=== PATIENT | male | born 1965 | race Caucasian/White ===

== ENCOUNTER 2021-02-15 07:30 | Day surgery (SDC) | payer BC ==
[~2021-02-15] VITALS: Ht 180.3 cm; Wt 129.7 kg
[~2021-02-15 07:30] MED LIST: LAMISIL250 MG PO; LISINOPRIL-HCT1 EACH PO; METOPROLOL SUCC25 MG PO; OMEPRAZOLE20 M1 PO; OMEPRAZOLE20 MG PO
--- NOTE | 2021-02-15 09:33 | NUR ---
02/15/21 0933 MELCHOR SMYTH 0924- PATIENT AWAKE. RR EVEN, ON 2L PER NC. DENIES PAIN AND NAUSEA. IV FLUIDS INFUSIONING.
--- NOTE | 2021-02-16 09:13 | OR ---
[facility] [address], [place] [address] Signed DATE OF OPERATION: 02/15/2021 SURGEON: Moses Major MD PREOPERATIVE DIAGNOSES: 1. Father with rectal cancer in his late 60s. 2. Brother with colon polyps at age 42. 3. Ileocecal valve polyp with low-grade dysplasia in 2015. 4. Minimal diverticulosis. 5. Internal and external hemorrhoids. POSTOPERATIVE DIAGNOSES: 1. Moderate external hemorrhoids. 2. Minimal internal hemorrhoids. 3. No visible diverticulosis. 4. 6 mm polyp at 50 cm. 5. 5 mm polyp at 28 cm. 6. 5 mm polyp at 18 cm/rectum. 7. 4 mm polyps x2 at 12 cm. PROCEDURE: Colonoscopy without biopsy. ESTIMATED BLOOD LOSS: None. INDICATIONS: David is a 55-year-old obese gentleman, who was asked to see me for followup colonoscopy. We know his father had rectal cancer in his late 60s. His brother had colonic polyps removed as early as age 42. David himself underwent colonoscopy in 2016 and was found to have a small lesion on the ileocecal valve. It was said to have low-grade dysplasia, but it had been completely cauterized and destroyed. He also had minimal sigmoid diverticulosis along with internal and external hemorrhoids. He returns currently for followup colonoscopy. He has no lower GI complaints. He has always done well with Versed and fentanyl. In the office, I gave him a pamphlet on colonoscopy. He recalls the nature of the test. There is risk including, but not limited to gas bloating, crampy abdominal pain, bleeding, perforation requiring surgery, and missed diagnosis. He also understands the need for the IV conscious sedation. He had expressed understanding and wished to proceed. Electronically Signed By: MOSES MAJOR MD 02/16/21 0913 PATIENT NAME: DAVID CAICEDO OPERATIVE REPORT DATE OF : 65 REPORT #: [id number] PHYSICIAN: MOSES MAJOR MD PCP: JEAN MARIE LIEBERMAN MD REPORT IS CONFIDENTIAL AND NOT TO BE RELEASED WITHOUT AUTHORIZATION [facility] [address] [place] [address], [place] [address] Signed PROCEDURE IN DETAIL: David was taken into our endoscopy suite and placed in the left lateral decubitus position. He was given a total of 8 mg of Versed and 175 mcg of fentanyl to cover the case. Even then, he woke up a couple of times during the procedure although, he was quite comfortable. A digital rectal exam was performed and I could just feel the bottom of the prostate gland. He is a large man one cannot reach his entire prostate gland. No obvious findings. He does have moderate circumferential external hemorrhoids. The right were slightly larger than the left. He had good sphincter tone. The adult colonoscope was introduced in and advanced all around into the cecum under direct visualization camera without difficulty. Again, he did take some extra sedation throughout the test. Overall, his prep was good. He could take a little more prep in the future. We could see the ileocecal valve along with the appendiceal orifice. Pictures were taken throughout for photodocumentation. The scope was then slowly withdrawn. We did not specifically see diverticula on this occasion. However, we did remove the above-mentioned polyps with the help of hot biopsy forceps. Once in the rectum, the scope was retroflexed and he has just minimal internal hemorrhoid tissue. After this, the gas was suctioned out and colonoscope removed. Brian tolerated the procedure quite well. RECOMMENDATIONS: I will see Brian back in my office in 7 to 14 days to review his results. It looks like he will stay on the 5-year rotation. He might consider a little extra prep in the future. Moses Major MD ALB/MODL /[id number] cc: MD Jean Marie Falcon MD Copies: MOSES MAJOR MD Electronically Signed By: MOSES MAJOR MD 02/16/21 0913 PATIENT NAME: DAVID CAICEDO OPERATIVE REPORT DATE OF : 65 REPORT #: [id number] PHYSICIAN: MOSES MAJOR MD PCP: JEAN MARIE LIEBERMAN MD REPORT IS CONFIDENTIAL AND NOT TO BE RELEASED WITHOUT AUTHORIZATION [facility] [address] [facility] [place], [place] [address] Signed JEAN MARIE LIEBERMAN MD ~ Electronically Signed By: MOSES MAJOR MD 02/16/21 0913 PATIENT NAME: SASCHADAVID REILLY OPERATIVE REPORT DATE OF : 65 REPORT #: [id number] PHYSICIAN: MOSES MAJOR MD PCP: JEAN MARIE LIEBERMAN MD REPORT IS CONFIDENTIAL AND NOT TO BE RELEASED WITHOUT AUTHORIZATION
--- NOTE | 2021-02-16 14:09 | PATH ---
[facility] [address] [place], [place] [address] Signed SPECIMEN(S): A COLON POLYP AT 50 CM SPECIMEN(S): B COLON POLYP AT 28 CM SPECIMEN(S): C COLON POLYP AT 18 CM SPECIMEN(S): D COLON POLYP AT 12 CM X2 SPECIMEN SOURCE: A. COLON POLYP AT 50 CM B. COLON POLYP AT 28 CM C. COLON POLYP AT 18 CM D. COLON POLYP AT 12 CM X2 CLINICAL HISTORY: "Divertic", hemorrhoids, polyps. Dx: Colon polyps, external hemorrhoids. MICROSCOPIC DESCRIPTION: Histologic sections of all submitted blocks are examined by light microscopy. These findings, together with the gross examination, support the pathologic diagnosis. FINAL PATHOLOGIC DIAGNOSIS: A. Colon, 50 cm, polypectomy: - Hyperplastic polyp. B. Colon, 28 cm, polypectomy: - Tubular adenoma. C. Colon, 18 cm, polypectomy: - Tubular adenoma. D. Colon, 12 cm, polypectomies: - Hyperplastic polyps (two). BRP:[id number] GROSS DESCRIPTION: Four specimens are received in four containers, labeled "AW." A. The specimen, labeled "AW, colon polyp at 50 cm," is received in formalin and consists of two jefferson soft tissue fragment(s) that measure 0.1-0.2 cm in greatest dimension. The specimen is entirely submitted in cassette (A1). B. The specimen, labeled "AW, colon polyp at 28 cm," is received in formalin and consists of two jefferson soft tissue fragment(s) that measure 0.1 cm in greatest dimension. The specimen is entirely submitted in cassette (B1). C. The specimen, labeled "AW, colon polyp at 18 cm," is received in formalin and consists of two jefferson soft tissue fragment(s) that measure 0.2 cm in greatest PATIENT NAME: DAVID CAICEDO PATHOLOGY DATE OF : 65 REPORT #: [id number] PHYSICIAN: ALEJO PATHOLOGY PCP: JEAN MARIE LIEBERMAN MD REPORT IS CONFIDENTIAL AND NOT TO BE RELEASED WITHOUT AUTHORIZATION [facility] [address] [place], [place] [address] Signed dimension. The specimen is entirely submitted in cassette (C1). D. The specimen, labeled "AW, colon polyp at 12 cm," is received in formalin and consists of two jefferson soft tissue fragment(s) that measure 0.1-0.2 cm in greatest dimension. The specimen is entirely submitted in cassette (D1). JS (under the direct supervision of a pathologist) The Gross Description was prepared using a voice recognition system. The report was reviewed for accuracy; however, sound-alike word errors, addition and/or deletions may occur. If there is any question about this report, please contact Client Services. PERFORMING LABORATORY: The technical component was performed by [facility], [address] [place] [id number] (Director Service: Arelis Tucker MD; CLIA# [id number]). [facility], [address] [address] (CLIA# [id number]). Diagnostician: Freedom Camilo MD Pathologist Electronically Signed 02/16/2021 Copies: ~ PATIENT NAME: DAVID CAICEDO PATHOLOGY DATE OF : 65 REPORT #: [id number] PHYSICIAN: ALEJO PATHOLOGY PCP: JEAN MARIE LIEBERMAN MD REPORT IS CONFIDENTIAL AND NOT TO BE RELEASED WITHOUT AUTHORIZATION
== END 2021-02-15 10:05 | disposition home or self-care (01) ==
LOC: DS 07:30 → OPS 07:30 → DS 08:15 → OPS 08:15
PROVIDERS: ATTEND Colon & Rectal Surgery
PROC: 0DBC8ZZ Excision of Ileocecal Valve, Via Natural or Artificial Opening Endoscopic (ICD-10-PCS; principal; 2021-02-15 08:15)
DX: K63.5 Polyp of colon (principal); D12.0 Benign neoplasm of cecum; K64.4 Residual hemorrhoidal skin tags; K64.8 Other hemorrhoids; I10 Essential (primary) hypertension; K21.9 Gastro-esophageal reflux disease without esophagitis; F17.210 Nicotine dependence, cigarettes, uncomplicated; Z80.0 Family history of malignant neoplasm of digestive organs
CPT/HCPCS: J2250; J3010; J7121